=== PATIENT | female | born 1975 | race Caucasian/White ===

== ENCOUNTER 2017-07-15 01:10 | Emergency (ER) | payer OTHER ==
[2017-07-15 01:31] VITALS: TEMP 98.7; BMI 25.9
--- NOTE | 2017-07-15 02:02 | PDOC ---
Attending Attestation - Resident Resident Name: Peggy Martin - ED Attending Attestation I have performed the following: I have examined & evaluated the patient, The case was reviewed & discussed with the resident, I agree w/resident's findings & plan - HPI HPI: 07/15/17 04:22 Pt comes with left sided body heaviness; and 4 days of chest pain. She has a completely normal exam and normal vitals. 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 I believe the chemicals that she is exposed to may be harming her health. I explained this to the patient - Physicial Exam PE: 07/15/17 04:23 Agree [facility] resident exam - Medical Decision Making 07/15/17 04:03 Patient Name: MARTELL THIS IS A PRELIMINARY REPORT FROM IMAGING INFORMATION SERVICES ASSISTANT DATE OF SERVICE: 2017-07-15 03:03:29 IMAGES: 165 EXAM: CT HEAD WITHOUT CONTRAST No acute brain parenchymal abnormality. No hemorrhage, mass or acute territorial infarct. Clear visualized paranasal sinuses. Visualized mastoid air cells clear. THIS DOCUMENT HAS BEEN ELECTRONICALLY SIGNED 07/15/17 04:23 Labs normal; ekg normal; CXR normal Pt can go home. Follow with PMD Return for worsening symptoms.
--- NOTE | 2017-07-15 02:07 | PDOC ---
History of Present Illness - General Chief Complaint: Chest Pain Stated Complaint: CHEST PAIN Time Seen by Provider: 07/15/17 01:21 - History of Present Illness Initial Comments: 07/15/17 03:05 42 year old female with a PMH of Hypothyroidism presents to our ED c/o 3 day h/ o L sided weakness. 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 Patient states the weakness continued to spread to her lower extremities and worsened over the next two days ultimately prompting her visit to the ED. Patient denies any trauma, slurred speech, visual changes, difficulties ambulating or completing ADL's. Patient denies any prior instances of similar weakness. ROS is positive for palpitations. Patient denies chest pain, shortness of breath, fevers/chills, nausea/vomiting, diarrhea/constipation, recent travel or sick contacts. As per EMR patient evaluated in our ED in 2013 for chest pain at which time ACS was ruled out and patient was diagnosed with GERD. NKDA Surgical: none Social: denies nicotine, denies alcohol, denies recreational drugs PMD: Dr. Duncan Past History - Past Medical History Allergies/Adverse Reactions: Allergies Allergy/AdvReac Type Severity Reaction Status Date / Time No Known Allergies Allergy Verified 07/15/17 01:32 Home Medications: Ambulatory Orders Levothyroxine [Synthroid -] 75 mcg PO DAILY 07/15/17 COPD: No Thyroid Disease: Yes (hyperthyroid) - Suicide/Smoking/Psychosocial Hx Smoking Status: No Smoking History: Never smoked Number of Cigarettes Smoked Daily: 0 Hx Alcohol Use: No Drug/Substance Use Hx: No *Physical Exam - Vital Signs Last Vital Signs Temp Pulse Resp BP Pulse Ox 98.7 F 64 18 138/84 100 07/15/17 01:29 07/15/17 01:29 07/15/17 01:29 07/15/17 01:37 07/15/17 01:38 - Physical Exam Comments: 07/15/17 03:29 GENERAL: Awake, alert, and fully oriented, in no acute distress HEAD: No signs of trauma EYES: PERRLA, EOMI, sclera anicteric, conjunctiva clear ENT: Auricles normal inspection, hearing grossly normal, nares patent, oropharynx clear without exudates. Moist mucosa NECK: Nontender, no stepoffs, Normal ROM, supple, no lymphadenopathy, JVD, or masses LUNGS: Breath sounds equal, clear to auscultation bilaterally. No wheezes, and no crackles HEART: Regular rate and rhythm, normal S1 and S2, no murmurs, rubs or gallops ABDOMEN: Soft, nontender, normoactive bowel sounds. No guarding, no rebound. No masses EXTREMITIES: Normal range of motion, no edema. No clubbing or cyanosis. No cords, erythema, or tenderness NEUROLOGICAL: Cranial nerves II through XII intact. 5/5 strength and sensation in all extremities, Normal speech, normal gait, normal cerebellar function SKIN: Warm, Dry, normal turgor, no rashes or lesions noted. ED Treatment Course - LABORATORY CBC & Chemistry Diagram: 07/15/17 02:18 07/15/17 02:18 Medical Decision Making - Medical Decision Making 07/15/17 03:14 42 year old female present with 3 day h/o worsening L sided unilateral *DC/Admit/Observation/Transfer Diagnosis at time of Disposition: Weakness - Discharge Dispostion Disposition: HOME Condition at time of disposition: Good Admit: No - Referrals Referrals: Rajani Hinson MD [Primary Care Provider] - - Patient Instructions Printed Discharge Instructions: DI for Muscle Weakness Additional Instructions: You were evaluated today for weakness. All of your labs and imaging showed no concerning findings. Please follow-up with your primary care doctor in the next 48 hours. Return to the Emergency Department for any new/worsening/ concerning symptoms. - Post Discharge Activity
[2017-07-15 02:24] LABS: BASO % 0.7 % (0-2.0); EOS % 2.2 % (0-4.5); HEMATOCRIT 34.3 % (32.4-45.2); HEMOGLOBIN 11.5 GM/dL (10.7-15.3); LYMPH % 40.6 % (8-40); MCH 29.2 pg (25.7-33.7); MCHC 33.5 g/dl (32.0-36.0); MEAN CELL VOLUME 87.1 fl (80-96); MEAN PLT VOLUME 9.2 fl (7.5-11.1); MONO % 9.4 % (3.8-10.2); NEUT % 47.1 % (42.8-82.8); PLATELET COUNT 241 K/MM3 (134-434); RBC 3.94 M/mm3 (3.60-5.2); RDW 13.3 % (11.6-15.6); WHITE BLOOD COUNT 7.3 K/mm3 (4.0-10.0)
[2017-07-15 02:55] LABS: ALBUMIN 3.8 g/dl (3.4-5.0); ANION GAP 10 (8-16); BLOOD UREA NITROGEN 15 mg/dL (7-18); CALCIUM 8.9 mg/dL (8.5-10.1); CHLORIDE 106 mmol/L (98-107); CO2 26 mmol/L (21-32); CREATININE 0.9 mg/dL (0.55-1.02); GLUCOSE,RANDOM 85 mg/dL (74-106); POTASSIUM 3.9 mmol/L (3.5-5.1); SGOT/AST 13 U/L (15-37); SGPT/ALT 11 U/L (12-78); SODIUM 142 mmol/L (136-145)
[2017-07-15 02:59] LABS: ALK PHOS 54 U/L (45-117); BILIRUBIN,TOTAL 0.5 mg/dL (0.2-1.0); TOT PROT 7.1 g/dl (6.4-8.2)
[2017-07-15 03:05] LABS: ERYTHROCYTE SEDIMENTATION RATE 6 mm/hr (0-20)
[2017-07-15 04:25] VITALS: BP 140/85; PULSE 76
--- NOTE | 2017-07-15 23:51 | EKG ---
Test Reason : Blood Pressure : / mmHG Vent. Rate : 073 BPM Atrial Rate : 073 BPM P-R Int : 140 ms QRS Dur : 072 ms QT Int : 364 ms P-R-T Axes : 058 053 039 degrees QTc Int : 401 ms NORMAL SINUS RHYTHM NORMAL ECG WHEN COMPARED WITH ECG OF 24-MAY-2012 14:40, NO SIGNIFICANT CHANGE WAS FOUND Confirmed by CASSIE ESCOBEDO MD ([id number]) on 07/15/2017 11:51:22 PM Referred By: Confirmed By:CASSIE ESCOBEDO MD
== END 2017-07-15 04:29 | disposition home or self-care (01) ==
LOC: JER 01:10
DX: M62.81 Muscle weakness (generalized) (principal); R00.2 Palpitations; E05.90 Thyrotoxicosis, unspecified without thyrotoxic crisis or storm
CPT/HCPCS: 36415; 70450-TC; 71046-TC-FY; 80053; 82550; 84484; 84703; 85025; 85651; 93005; 93010; 99284-25

== ENCOUNTER 2018-01-15 12:28 | Emergency (ER) | payer SELFPAY ==
[2018-01-15 12:32] VITALS: BP 144/96; PULSE 82; TEMP 98.6; BMI 25.9
--- NOTE | 2018-01-15 13:45 | PDOC ---
History of Present Illness - General Chief Complaint: Diarrhea Stated Complaint: DIARRHEA Time Seen by Provider: 01/15/18 13:39 History Source: Patient, Family - History of Present Illness Initial Comments: 01/15/18 14:37 The patient is a 42 year old female with a PMH of hypothyroidism who presents with a 2 week h/o diarrhea, a two day h/o abdominal pain. Pain is cramping, intermittent, 5/10 with no association with eating, movement, breathing. Patient had 5 watery bowel movements today with one instance of bloody stools. prompting her visit to the ED. Denies any associated fevers/chills. Tolerating PO intake, last meal was yesterday. No recent abx use, no recent travel. LMP was two weeks previous. NKDA Surgical: hysterectomy Social: denies toxic habits PMD: Dr. Rajani Duncan Past History - Past Medical History Allergies/Adverse Reactions: Allergies Allergy/AdvReac Type Severity Reaction Status Date / Time No Known Allergies Allergy Verified 01/15/18 12:32 Home Medications: Ambulatory Orders Levothyroxine [Synthroid -] 75 mcg PO DAILY 07/15/17 Loperamide HCl Liquid [Imodium Liquid -] 2 mg PO Q6H PRN 5 Days #1 bottle COPD: No Thyroid Disease: Yes (hyperthyroid) - Immunization History Immunization Up to Date: Yes - Suicide/Smoking/Psychosocial Hx Smoking Status: No Smoking History: Never smoked Have you smoked in the past 12 months: No Number of Cigarettes Smoked Daily: 0 Information on smoking cessation initiated: No Hx Alcohol Use: No Drug/Substance Use Hx: No Substance Use Type: None Review of Systems - Review of Systems Constitutional: No: Chills, Fever Respiratory: No: Cough, Shortness of Breath Cardiac (ROS): No: Chest Pain, Lightheadedness, Palpitations ABD/GI: Yes: Diarrhea. No: Constipated, Nausea, Vomiting : No: Burning, Dysuria *Physical Exam - Vital Signs Last Vital Signs Temp Pulse Resp BP Pulse Ox 98.6 F 82 16 144/96 100 01/15/18 12:30 01/15/18 12:30 01/15/18 12:30 01/15/18 12:30 01/15/18 12:30 - Physical Exam General Appearance: Yes: Nourished, Appropriately Dressed HEENT: positive: Normal Voice, Hearing Grossly Normal Neck: positive: Trachea midline, Supple Respiratory/Chest: positive: Lungs Clear, Normal Breath Sounds. negative: Labored Respiration, Rapid RR, Crackles, Wheezing Cardiovascular: positive: S1, S2. negative: Edema, JVD Gastrointestinal/Abdominal: positive: Normal Bowel Sounds, Soft, Tenderness ( RLQ TTP). negative: Distended, Rebound, Hernia, Mass Rectal Exam: negative: hemorrhoids Musculoskeletal: negative: CVA Tenderness (R), CVA Tenderness (L) Extremity: positive: Normal Capillary Refill, Normal Inspection Integumentary: positive: Normal Color, Dry, Warm ED Treatment Course - LABORATORY CBC & Chemistry Diagram: 01/15/18 14:05 01/15/18 14:05 Medical Decision Making - Medical Decision Making 01/15/18 14:40 42 year old female with bloody diarrhea + abdominal pain. VS unremarkable. RLQ TTP w/o peritoneal signs. Frontal diagnosis: IBS, viral gastritis, hemorrhoids early appendicitis, less likely cholecystitis/bilary disease, adnexal pathology or foodborne illness (due to duration of symptoms). Will obtain basic labs, urine culture. Bedside U/S. IV fluids. Reassess. 01/15/18 14:59 Bedside U/S shows normal sized GB, with no cholelithiasis, no AGBW thickening, normal sized CBD 01/15/18 15:58 No leukocytosis UA clean Pelvic exam pending 01/15/18 16:06 No CMT, non palpable adenxa, closed cervical os on pelvic exam. Patient recieving IV NS + Loperamide Will reasess 01/15/18 16:31 Reassed patient @ bedside. Non-tender on repeat belly exam. IV fluids hanging. PO challenge and likely dispo home. 01/15/18 17:10 Patient tolerating PO intake Ambulatory around unit. Will discharge home with return precautions (fever (abdominal abscess), increased bloody stools (IBD), increasing pain (appendicitis), Loperamide for diarrhea and PMD follow-up. *DC/Admit/Observation/Transfer Diagnosis at time of Disposition: Diarrhea - Discharge Dispostion Disposition: HOME Condition at time of disposition: Good Decision to Admit order: No - Prescriptions Prescriptions: Loperamide HCl Liquid [Imodium Liquid -] 2 mg PO Q6H PRN 5 Days #1 bottle PRN Reason: Diarrhea - Referrals Referrals: Rajani Hinson MD [Primary Care Provider] - - Patient Instructions Printed Discharge Instructions: Diarrhea Additional Instructions: We have sent a prescription to your pharmacy for your diarrhea. Take as needed for the next 5 days. Please see your primary care doctor, Dr. Duncan, within the next 48 hours for further evaluation. Return to the Emergency Department for any new/worsening/concerning symptoms including fevers, repeated bloody diarrhea, or worsening pain as you may need a cat scan. - Post Discharge Activity
[2018-01-15] MEDS ORDERED: SODIUM CHLORIDE 0.9% 500 ML INFUS.BAG IV ONE (14:03)
--- NOTE | 2018-01-15 14:06 | PDOC ---
Attending Attestation - Resident Resident Name: Peggy Martin - ED Attending Attestation I have performed the following: I have examined & evaluated the patient, The case was reviewed & discussed with the resident, I agree w/resident's findings & plan, Exceptions are as noted - HPI HPI: 01/16/18 13:45 Ms Kimi Puente is a 42 yo F who presents to the ER with a complaint of 2 weeks of diarrhea and two days of abdominal pain. She describes pain as cramping, intermittent, 5/10. Patient had 5 watery bowel movements today with one instance of blood streaked stools. No fevers or chills No recent international travel Tolerating PO intake, last meal was yesterday. No recent abx use. LMP was two weeks previous. - Physicial Exam PE: 01/16/18 13:54 GENERAL: The patient is in no acute distress. LUNGS: Breath sounds equal, clear to auscultation bilaterally. No wheezes, and no crackles. HEART:Regular rate and rhythm, normal S1 and S2 without murmur, rub or gallop. ABDOMEN: Soft, mild lower abdominal tenderness to palpation, normoactive bowel sounds. No guarding, no rebound. EXTREMITIES: Normal range of motion NEUROLOGICAL: Cranial nerves II through XII grossly intact. Normal speech. No focal neurological deficits. MUSCULOSKELETAL: Back non-tender to palpation, no CVA tenderness SKIN: Warm, Dry, normal turgor, no rashes or lesions noted. - Medical Decision Making 01/16/18 13:55 Laboratory Tests 01/15/18 01/15/18 01/15/18 14:05 14:05 14:05 WBC 7.6 Hgb 12.9 Hct 39.5 D Plt Count 252 BUN 5 L Creatinine 0.7 Urine Blood Negative Urine Nitrite Negative Ur Leukocyte Esterase Negative Urine HCG, Qual 01/15/18 14:48 WBC Hgb Hct Plt Count BUN Creatinine Urine Blood Urine Nitrite Ur Leukocyte Esterase Urine HCG, Qual Negative Pt pain improved Will discharge to home Pt unable to give stool sample in the ER Pt can follow up with PMD
[2018-01-15 14:41] LABS: BASO % 0.6 % (0-2.0); EOS % 0.8 % (0-4.5); HEMATOCRIT 39.5 % (32.4-45.2); HEMOGLOBIN 12.9 GM/dL (10.7-15.3); LYMPH % 25.9 % (8-40); MCH 28.2 pg (25.7-33.7); MCHC 32.6 g/dl (32.0-36.0); MEAN CELL VOLUME 86.5 fl (80-96); MEAN PLT VOLUME 8.5 fl (7.5-11.1); NEUT % 64.7 % (42.8-82.8); PLATELET COUNT 252 K/MM3 (134-434); RBC 4.57 M/mm3 (3.60-5.2); RDW 13.4 % (11.6-15.6); WHITE BLOOD COUNT 7.6 K/mm3 (4.0-10.0)
[2018-01-15 14:48] LABS: INR 0.94 (0.83-1.09); PROTHROMBIN TIME (PATIENT) 11.1 SEC (9.7-13.0)
[2018-01-15 14:50] LABS: ALBUMIN 3.6 g/dl (3.4-5.0); ALK PHOS 61 U/L (45-117); ANION GAP 4 MMOL/L (8-16); BILIRUBIN,TOTAL 0.7 mg/dL (0.2-1); BLOOD UREA NITROGEN 5 mg/dL (7-18); CALCIUM 8.5 mg/dL (8.5-10.1); CHLORIDE 105 mmol/L (98-107); CO2 28 mmol/L (21-32); CREATININE 0.7 mg/dL (0.55-1.3); GLUCOSE,RANDOM 83 mg/dL (74-106); SGOT/AST 14 U/L (15-37); SGPT/ALT 12 U/L (13-61); SODIUM 138 mmol/L (136-145); TOT PROT 7.2 g/dl (6.4-8.2)
[2018-01-15 14:51] LABS: ACTIVATED PTT 29.7 SECONDS (25.2-36.5)
[2018-01-15] MEDS ORDERED: LOPERAMIDE HCL 2 MG CAPSULE PO ONE (15:15)
[2018-01-15] MEDS ORDERED: LOPERAMIDE HCL 2 MG CAPSULE ONE (15:19)
[2018-01-15 15:55] LABS: URINE APPEARANCE CLEAR; URINE BILIRUBIN NEGATIVE (<2.0 mg/dL); URINE COLOR LTYELLOW; URINE GLUCOSE (UA) NEGATIVE (NEGATIVE); URINE KETONE NEGATIVE (NEGATIVE); URINE LEUK ESTERASE NEGATIVE (NEGATIVE); URINE NITRITE NEGATIVE (NEGATIVE); URINE PROTEIN NEGATIVE (NEGATIVE); URINE UROBILINOGEN NEGATIVE mg/dL (0.2-1.0)
== END 2018-01-15 17:42 | disposition home or self-care (01) ==
LOC: JER 12:28
PROC: 3E0337Z Introduction of Electrolytic and Water Balance Substance into Peripheral Vein, Percutaneous Approach (ICD-10-PCS; principal; 2018-01-15)
DX: R19.7 Diarrhea, unspecified (principal)
CPT/HCPCS: 36415; 80053; 81003; 84703; 85025; 85610; 85730; 86850; 86900; 86901; 87086; 99283-25

== ENCOUNTER 2018-08-23 02:37 | Emergency (ER) | payer OTHER ==
[2018-08-23 02:47] VITALS: BMI 28.3
--- NOTE | 2018-08-23 03:12 | PDOC ---
Attending Attestation - Resident Resident Name: Rizwan Stern - ED Attending Attestation I have performed the following: I have examined & evaluated the patient, The case was reviewed & discussed with the resident, I agree w/resident's findings & plan - HPI HPI: 08/23/18 05:47 Pt was having a BM, and afterward stood, and had a syncope and fell and lost consciousness x 5 min. Unwitnessed she doesn't know what on her body she hit, but knows that she struck the floor. SJe has CASTRO now as well as bilat leg pain. She ate only soup today. She is dehydrated. She states that many people at work are ill and coughing. 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 She states that she had seen a drop of blood on the tolet paper. Also, pt says that she has been non compliant with her hypothyroid meds. 08/23/18 06:42 Pt has normal labs. - Physicial Exam PE: 08/23/18 06:43 Agree with resident exam. - Medical Decision Making 08/23/18 05:49 TSH is elevated, likely reflecting the fact that she is not getting meds for her hypothyroidism. 08/23/18 07:14 Pt is febrile now and tachycardic. She is getting hydrated. She will be signed out to the day team. She is awaiting CT scans and labs and she will be admitted for syncope.
--- NOTE | 2018-08-23 03:15 | PDOC ---
History of Present Illness - General Chief Complaint: Syncope/Near Syncope Stated Complaint: SYNCOPE Time Seen by Provider: 08/23/18 02:54 History Source: Patient Exam Limitations: No Limitations - History of Present Illness Initial Comments: Patient is a 43 year old female with history of hypothyroidism (currently not taking medication), vertigo presents after a syncopal episode. She states that earlier this evening she felt dizziness during bowel movement. Denies diarrhea, edy red blood, or melanotic stool. She attempted to get up off the toilet, and immediately fell down onto the floor. She admits prodromal flushing, however denies any chest pain, palpitations. She admits to losing consciousness , however does not know how long she was on the ground. She states she was found by her aunt. No bowel or bladder incontinence noted. Patient does admit to hitting her head. She states he symptoms were similar to her vertigo. Currently she admits only headache. She denies subjective fevers, chills, changes in vision, lightheadedness, shortness of breath, chest pain, palpitations, abdominal pain, nausea, vomiting. Past History - Travel Traveled outside of the country in the last 30 days: No - Past Medical History Allergies/Adverse Reactions: Allergies Allergy/AdvReac Type Severity Reaction Status Date / Time No Known Allergies Allergy Verified 08/23/18 02:46 Home Medications: Ambulatory Orders NK [No Known Home Medication] 08/23/18 COPD: No Thyroid Disease: Yes (hyperthyroid) Other medical history: Vertigo - Immunization History Immunization Up to Date: Yes - Suicide/Smoking/Psychosocial Hx Smoking Status: No Smoking History: Never smoked Have you smoked in the past 12 months: No Number of Cigarettes Smoked Daily: 0 Hx Alcohol Use: No Drug/Substance Use Hx: No Substance Use Type: None Review of Systems - Review of Systems Able to Perform ROS?: Yes Is the patient limited Persian proficient: Yes Constitutional: No: Chills, Diaphoresis, Fever, Weakness HEENTM: No: Blurred Vision, Recent change in vision, Throat Pain, Throat Swelling, Difficulty Swallowing Respiratory: No: Cough, Orthopnea, Shortness of Breath, Stridor, Wheezing Cardiac (ROS): No: Chest Pain, Lightheadedness, Palpitations ABD/GI: No: Abdominal Distended, Abd. Pain w/ defecation, Blood Streaked Bowels , Nausea, Rectal Bleeding, Vomiting, Tarry Stools : No: Burning, Dysuria, Hematuria Integumentary: Yes: Bruising (left forehead) Neurological: Yes: Headache. No: Numbness, Paresthesia, Seizure, Tingling, Weakness *Physical Exam - Vital Signs Last Vital Signs Temp Pulse Resp BP Pulse Ox 98.0 F 95 H 18 118/67 100 08/23/18 02:44 08/23/18 02:44 08/23/18 02:44 08/23/18 02:44 08/23/18 02:44 - Physical Exam General Appearance: Yes: Nourished, Appropriately Dressed. No: Apparent Distress HEENT: negative: EOMI, SARABJIT, Scleral Icterus (R), Scleral Icterus (L), Pharyngeal Erythema, Tonsillar Exudate Neck: positive: Trachea midline, Supple. negative: Stridor, Lymphadenopathy (R) , Lymphadenopathy (L), Rigidity Respiratory/Chest: positive: Lungs Clear, Normal Breath Sounds. negative: Respiratory Distress, Accessory Muscle Use, Labored Respiration, Crackles, Rales , Rhonchi, Stridor, Wheezing Cardiovascular: positive: Regular Rhythm, Regular Rate, S1, S2 Gastrointestinal/Abdominal: positive: Normal Bowel Sounds, Flat, Soft. negative : Tender, Guarding, Rebound, Tenderness Integumentary: positive: Dry, Warm Neurologic: positive: head of loss prevention II-XII NML intact, Fully Oriented, Alert, Normal Mood/ Affect, Motor Strength 5/5 ED Treatment Course - LABORATORY CBC & Chemistry Diagram: 08/23/18 04:55 08/23/18 04:55 Medical Decision Making - Medical Decision Making 08/23/18 04:05 Patient is a 43 year old female with history of hypothyroidism (currently not taking medication), vertigo presents after a syncopal episode. Differential diagnosis of vertigo, vs vasovagal syncope. Cannot exclude hypothyriodism as patient has not been complaint with her synthroid for past year. Will draw CBC, BMP, TSH EKG CT head noncontrast IV normal saline 1L bolus Urine HCG Orthostatic vital signs Will re-evaluate Case signed out to Dr. Forman *DC/Admit/Observation/Transfer Diagnosis at time of Disposition: Syncopal episodes - Discharge Dispostion Disposition: HOME Decision to Admit order: No - Referrals Referrals: Rajani Hinson MD [Primary Care Provider] - Shira Ricketts MD [Staff Physician] - - Patient Instructions Additional Instructions: You were seen in the Emergency Department for an episode of loss of consciousness. Your CT head was negative. Your blood work showed elevated Thyroid levels, and it is important that you follow up with Drama Director. A referral to Dr. Ricketts has been provided See your Primary Doctor within the next 48 hours Make sure to keep yourself appropriately hydrated. Follow up with your primary care physician within one - two days after discharge. Follow up with your stopping builder within one - two days after discharge. - Post Discharge Activity
[2018-08-23 05:08] LABS: HEMATOCRIT 35.6 % (32.4-45.2); HEMOGLOBIN 11.8 GM/dL (10.7-15.3); MCH 28.5 pg (25.7-33.7); MCHC 33.2 g/dl (32.0-36.0); MEAN CELL VOLUME 85.8 fl (80-96); MEAN PLT VOLUME 7.9 fl (7.5-11.1); PLATELET COUNT 242 K/MM3 (134-434); RBC 4.15 M/mm3 (3.60-5.2); RDW 13.3 % (11.6-15.6); WHITE BLOOD COUNT 6.3 K/mm3 (4.0-10.0)
[2018-08-23 05:35] LABS: CALCIUM 8.4 mg/dL (8.5-10.1); CREATININE 0.8 mg/dL (0.55-1.3); POTASSIUM 4.5 mmol/L (3.5-5.1)
[2018-08-23] MEDS ORDERED: SODIUM CHLORIDE 1,000 ML IV STA ×2 (06:14→09:35)
[2018-08-23] MEDS ORDERED: ACETAMINOPHEN 325 MG TABLET (FP) PO ONE (06:28)
[2018-08-23] MEDS ORDERED: ACETAMINOPHEN 325 MG TABLET (FP) ONE (06:30)
[2018-08-23] MEDS ORDERED: KETOROLAC TROMETHAMINE 30 MG/1 ML VIAL IVPUSH ONE (06:41)
[2018-08-23] MEDS ORDERED: KETOROLAC TROMETHAMINE 30 MG/1 ML VIAL ONE (07:28)
--- NOTE | 2018-08-23 09:00 | PDOC ---
*Physical Exam - Vital Signs Last Vital Signs Temp Pulse Resp BP Pulse Ox 100.0 F H 111 H 16 123/69 100 08/23/18 06:50 08/23/18 06:50 08/23/18 06:50 08/23/18 06:50 08/23/18 06:50 ED Treatment Course - LABORATORY CBC & Chemistry Diagram: 08/23/18 04:55 08/23/18 04:55 - ADDITIONAL ORDERS Additional order review: Laboratory Results 08/23/18 08/23/18 08/23/18 05:00 04:55 04:55 Sodium 137 Potassium 4.5 Chloride 106 Carbon Dioxide 27 Anion Gap 5 L BUN 11 Creatinine 0.8 Est GFR (CKD-EPI)AfAm 106.13 Est GFR (CKD-EPI)NonAf 91.57 Random Glucose 110 H Calcium 8.4 L Creatine Kinase 138 136 TSH 4.24 H Urine HCG, Qual Negative 08/23/18 04:55 RBC 4.15 MCV 85.8 MCHC 33.2 RDW 13.3 MPV 7.9 - Medications Given in the ED: ED Medications Discontinued Medications Generic Name Dose Route Start Last Admin Trade Name Collinq PRN Reason Stop Dose Admin Acetaminophen 650 mg 08/23/18 06:28 08/23/18 06:35 Tylenol - PO 08/23/18 06:29 650 mg ONCE ONE Administration Sodium Chloride 1,000 mls @ 1,000 mls/hr 08/23/18 06:14 08/23/18 06:35 Normal Saline - IV 08/23/18 07:13 1,000 mls/hr ASDIR STA Administration Ketorolac Tromethamine 30 mg 08/23/18 06:41 08/23/18 07:35 Toradol Injection - IVPUSH 08/23/18 06:42 30 mg ONCE ONE Administration Medical Decision Making - Medical Decision Making 08/23/18 08:35 s/o from night team 43 yo pmh hypothyroidism (none compliant with medication) and vertigo presents for presyncopal episode after using the toilet and standing to quickly. DDX INLT: vasovagal, vertigo, arrhythmia, orthostatic hypotension Orthostatics negative however pt noted to be tachy rectal temp 101 will give more fluids, tylenol and reassess 08/23/18 09:41 HR 107 temp 98 Pt feels better, ambulatory, labs an UA WNL Pt safe for DC home with PCP f/u *DC/Admit/Observation/Transfer Diagnosis at time of Disposition: Syncopal episodes - Discharge Dispostion Disposition: HOME - Referrals Referrals: Rajani Hinson MD [Primary Care Provider] - Shira Ricketts MD [Staff Physician] - - Patient Instructions Additional Instructions: You were seen in the Emergency Department for an episode of loss of consciousness. Your CT head was negative. Your blood work showed elevated Thyroid levels, and it is important that you follow up with Geriatric Nursing Assistant. A referral to Dr. Ricketts has been provided See your Primary Doctor within the next 48 hours Make sure to keep yourself appropriately hydrated. Follow up with your primary care physician within one - two days after discharge. Follow up with your ruby on rails developer within one - two days after discharge. - Post Discharge Activity
[2018-08-23 09:19] LABS: PH,URINE 8.5 (5.0-8.0); URINE APPEARANCE Clear; URINE BILIRUBIN Negative (NEGATIVE); URINE COLOR Yellow; URINE GLUCOSE (UA) Negative (NEGATIVE); URINE KETONE Negative (NEGATIVE); URINE LEUK ESTERASE Negative (NEGATIVE); URINE NITRITE Negative (NEGATIVE); URINE PROTEIN Negative (NEGATIVE)
[2018-08-23] MEDS ORDERED: ACETAMINOPHEN 1000 MG/100 ML VIAL (NON FORMULARY) IVPB ONE (09:46)
[2018-08-23 09:47] LABS: EPI CELLS 2.2 /HPF (0-5/HPF); URINE BACTERIA 49.3 /hpf (NEGATIVE); URINE CASTS 3 /lpf (0-8); URINE RBC 3 /hpf (0-4); URINE WBC 1 /hpf (0-5)
[2018-08-23] MEDS ORDERED: ACETAMINOPHEN INJECTION 100 ML IVPB ONE (10:13)
--- NOTE | 2018-08-23 10:56 | EKG ---
Test Reason : Blood Pressure : / mmHG Vent. Rate : 100 BPM Atrial Rate : 100 BPM P-R Int : 140 ms QRS Dur : 070 ms QT Int : 324 ms P-R-T Axes : 050 058 034 degrees QTc Int : 417 ms NORMAL SINUS RHYTHM NORMAL ECG WHEN COMPARED WITH ECG OF 15-JUL-2017 01:13, NO SIGNIFICANT CHANGE WAS FOUND Confirmed by BECCA MURILLO MD ([id number]) on 08/23/2018 10:55:56 AM Referred By: Confirmed By:BECCA MURILLO MD
[2018-08-23 11:25] VITALS: BP 107/60; PULSE 107; TEMP 98.7
== END 2018-08-23 12:01 | disposition home or self-care (01) ==
LOC: JER 02:37
PROC: 3E0337Z Introduction of Electrolytic and Water Balance Substance into Peripheral Vein, Percutaneous Approach (ICD-10-PCS; principal; 2018-08-23)
PROC: 3E0337Z Introduction of Electrolytic and Water Balance Substance into Peripheral Vein, Percutaneous Approach (ICD-10-PCS; 2018-08-23)
PROC: 3E033NZ Introduction of Analgesics, Hypnotics, Sedatives into Peripheral Vein, Percutaneous Approach (ICD-10-PCS; 2018-08-23)
PROC: 3E0333Z Introduction of Anti-inflammatory into Peripheral Vein, Percutaneous Approach (ICD-10-PCS; 2018-08-23)
DX: R55 Syncope and collapse (principal); S09.8XXA Other specified injuries of head, initial encounter; W18.12XA Fall from or off toilet with subsequent striking against object, initial encounter; Y93.89 Activity, other specified; Y92.031 Bathroom in apartment as the place of occurrence of the external cause; Y99.8 Other external cause status; E03.9 Hypothyroidism, unspecified
CPT/HCPCS: 36415; 70450-TC; 80048; 81003; 82550; 84443; 84703; 85027; 93005; 93010; 96361; 96374; 96375; 99285-25; J0131; J7030

== ENCOUNTER 2018-12-12 18:55 | Emergency (ER) | payer OTHER ==
--- NOTE | 2018-12-12 18:59 | PDOC ---
Rapid Medical Evaluation Time Seen by Provider: 12/12/18 18:57 Medical Evaluation: Allergies Allergy/AdvReac Type Severity Reaction Status Date / Time No Known Allergies Allergy Verified 08/23/18 02:46 12/12/18 18:57 I have performed a brief in-person evaluation of this patient. The patient presents with a chief complaint of: L conjunctival redness and pain since yesterday. No injury or sick contact. No contact lens use Pertinent physical exam findings:L conjunctival injection I have ordered the following:nothing The patient will proceed to the ED for further evaluation. Discharge Disposition - Diagnosis Conjunctivitis Qualifiers: Conjunctivitis type: acute Acute conjunctivitis type: unspecified Laterality: left Qualified Code(s): H10.32 - Unspecified acute conjunctivitis, left eye - Referrals - Patient Instructions - Post Discharge Activity
[2018-12-12 19:01] VITALS: BP 138/90; PULSE 65; TEMP 98.2; BMI 63.8
--- NOTE | 2018-12-12 21:27 | PDOC ---
History of Present Illness - General Chief Complaint: Eye Problem Stated Complaint: LEFT EYE PAIN Time Seen by Provider: 12/12/18 18:57 History Source: Patient Exam Limitations: No Limitations Past History - Past Medical History Allergies/Adverse Reactions: Allergies Allergy/AdvReac Type Severity Reaction Status Date / Time No Known Allergies Allergy Verified 08/23/18 02:46 Home Medications: Ambulatory Orders NK [No Known Home Medication] 08/23/18 COPD: No Thyroid Disease: Yes (hyperthyroid) - Immunization History Immunization Up to Date: Yes - Suicide/Smoking/Psychosocial Hx Smoking Status: No Smoking History: Never smoked Have you smoked in the past 12 months: No Number of Cigarettes Smoked Daily: 0 Information on smoking cessation initiated: No Hx Alcohol Use: No Drug/Substance Use Hx: No Substance Use Type: None *Physical Exam - Vital Signs Last Vital Signs Temp Pulse Resp BP Pulse Ox 98.2 F 65 18 138/90 100 12/12/18 18:59 12/12/18 18:59 12/12/18 18:59 12/12/18 18:59 12/12/18 18:59 - Physical Exam General Appearance: No: Apparent Distress HEENT: positive: EOMI, SARABJIT, Other (L eye injected, surrounding limbus, no pain on eye movement, no dye uptake, no corneal abrasion, no mid dilated pupil, vision 20/20 L eye, 20/20 R eye) Neurologic: positive: Alert, Normal Mood/Affect Medical Decision Making - Medical Decision Making 43 y/o F with hx of hypothyroid presents with L eye redness and pain from yesterday along with tearing and photophobia. Denies fever, URI sxs, headache, n /v, changes in vision, FB sensation other complaints. Concern for possible iritis No slit-lamp machine available to check for cell flare Discussed with eye doctor, DR. Irena Sinha, who stated she can see patient tomorrow morning, but patient will have to pay out of pocket as she does not accept her insurance or patient can see another eye doctor; does not advise to prescribe any meds for now without slip lamp exam Patient states she is willing to pay out of pocket 12/12/18 21:03 *DC/Admit/Observation/Transfer Diagnosis at time of Disposition: Left eye pain - Discharge Dispostion Disposition: HOME Condition at time of disposition: Stable Decision to Admit order: No - Referrals Referrals: Rajani Hinson MD [Primary Care Provider] - Irena Sinha MD [Staff Physician] - Call tomorrow - Patient Instructions Additional Instructions: Thank you for choosing [facility]. It was a pleasure taking care of you. You will need further evaluation by eye doctor regarding your symptoms Please follow-up with eye doctor tomorrow morning (come in before 10 AM) Return to the Emergency Department if your symptoms worsen or persist, you have changes in vision, loss of vision, severe headache, vomiting or other concerning symptoms. - Post Discharge Activity
== END 2018-12-12 21:55 | disposition home or self-care (01) ==
LOC: JERFT 18:55
DX: H10.32 Unspecified acute conjunctivitis, left eye (principal); E03.9 Hypothyroidism, unspecified
CPT/HCPCS: 99281-25

== ENCOUNTER 2022-10-18 13:06 | Emergency (ER) | payer OTHER ==
[2022-10-18 13:16] VITALS: BP 152/90; PULSE 77; RESP 18; TEMP 97.1; BMI 29.9
[2022-10-18] MEDS ORDERED: ACETAMINOPHEN 1000 MG/100 ML BAG IVPB ONE (14:03)
[2022-10-18] MEDS ORDERED: LACTATED RINGERS SOLUTION 1000 ML INFUS.BAG IV ONE (14:03)
[2022-10-18] MEDS ORDERED: METOCLOPRAMIDE HCL INJECTION 10 MG/2 ML VIAL IVPUSH ONE (14:03)
[2022-10-18] MEDS ORDERED: METOCLOPRAMIDE HCL INJECTION 10 MG/2 ML VIAL ONE (14:37)
[2022-10-18] MEDS ORDERED: ACETAMINOPHEN INJECTION 100 ML IVPB ONE ×2 (14:38→14:47)
[2022-10-18 15:14] LABS: BASO % 0.1 % (0-2.0); EOS % 1.8 % (0-4.5); HEMATOCRIT 37.7 % (32.4-45.2); HEMOGLOBIN 12.2 GM/dL (10.7-15.3); LYMPH % 34.9 % (8-40); MCH 28.2 pg (25.7-33.7); MCHC 32.5 g/dl (32.0-36.0); MEAN CELL VOLUME 86.8 fl (80-96); MEAN PLT VOLUME 8.5 fl (7.5-11.1); MONO % 7.7 % (3.8-10.2); NEUT % 55.5 % (42.8-82.8); PLATELET COUNT 276 10^3/uL (134-434); RBC 4.34 M/mm3 (3.60-5.2); RDW 14.4 % (11.6-15.6); WHITE BLOOD COUNT 7.1 K/mm3 (4.0-10.0)
[2022-10-18 15:41] LABS: POTASSIUM 4.4 mmol/L (3.5-5.1)
[2022-10-18 15:42] LABS: ALBUMIN 3.5 g/dl (3.4-5.0); BLOOD UREA NITROGEN 12.4 mg/dL (7-18); CALCIUM 9.1 mg/dL (8.5-10.1)
[2022-10-18 15:45] LABS: CREATININE 0.9 mg/dL (0.55-1.3)
[2022-10-18 15:47] LABS: BILIRUBIN,TOTAL 0.5 mg/dL (0.2-1); TOT PROT 6.9 g/dl (6.4-8.2)
== END 2022-10-18 17:41 | disposition home or self-care (01) ==
LOC: JER 13:06
PROC: 3E033NZ Introduction of Analgesics, Hypnotics, Sedatives into Peripheral Vein, Percutaneous Approach (ICD-10-PCS; principal; 2022-10-18)
PROC: 3E033GC Introduction of Other Therapeutic Substance into Peripheral Vein, Percutaneous Approach (ICD-10-PCS; 2022-10-18)
PROC: 3E033GC Introduction of Other Therapeutic Substance into Peripheral Vein, Percutaneous Approach (ICD-10-PCS; 2022-10-18)
DX: R51.9 Headache, unspecified (principal); R11.0 Nausea; R00.2 Palpitations; R07.89 Other chest pain; G43.009 Migraine without aura, not intractable, without status migrainosus
CPT/HCPCS: 36415; 71046-TC-FY; 80053; 84443; 84484; 85025; 93005; 93010; 99285-25